=== PATIENT | male | born 1955 | race Caucasian/White ===

== ENCOUNTER 2020-07-11 09:31 | Inpatient (IN) | payer MEDICARE, OTHER ==
[~2020-07-11] VITALS: Ht 180.3 cm; Wt 98.6 kg
[2020-07-11] VITALS (12 sets, daily range): BP systolic 98–177; BP diastolic 42–84
[~2020-07-11 09:31] MED LIST: albumin (human) 25% 100 ML IV solution IV ONE; aminocaproic acid 250 MG/1 ML inj. ONE; calcium chloride 100 MG/1 ML inj IV ONE; heparin 1,000 units/ml 10ml inj ONE
[2020-07-11] MEDS ORDERED: NITR0.4T51 SL (10:12)
[2020-07-11] MEDS ORDERED: FURO-150 PO (10:12)
[2020-07-11] MEDS ORDERED: LISI40TA4 PO (10:12)
[2020-07-11] MEDS ORDERED: SIMV10TA2 PO (10:12)
[2020-07-11] MEDS ORDERED: nitroGLYCERIN 0.4mg SUBLingual tab SL PRN ×2 (10:15→20:10)
[2020-07-11] MEDS ORDERED: LORazepam 0.5 MG tablet PO PRN (10:15)
[2020-07-11] MEDS ORDERED: sodium bicarbonate (8.4%) inj. 150 ML in dextrose 5%-water 1,000 ML IV ONE (10:15)
[2020-07-11] MEDS ORDERED: diphenhydrAMINE 25mg capsule PO PRN (10:15)
[2020-07-11] MEDS ORDERED: iohexol 350 MG/ML 50ML vial IV ONE (12:03)
[2020-07-11] MEDS ORDERED: LIDOcaine 1% (10mg/ml)w/preservative injection 20ml MDV ONE (12:03)
[2020-07-11] MEDS ORDERED: fentaNYL/PF 50MCG/1 ML 2ML syringe ONE (12:03)
[2020-07-11] MEDS ORDERED: midazolam 2 mg/2 ml injection ONE (12:03)
[2020-07-11] MEDS ORDERED: iohexol 350MG/ML 100ml bottle IV ONE (12:03)
[2020-07-11] MEDS ORDERED: ondansetron/PF 4mg/2ml inj IV PRN (13:30)
[2020-07-11] MEDS ORDERED: HYDROcodone/acetaminophen 10/325mg tab PO PRN (13:35)
[2020-07-11] MEDS ORDERED: HYDROcodone/acetaminophen 5mg/325mg tablet PO PRN (13:35)
[2020-07-11] MEDS ORDERED: proCHLORperazine 10 MG/2 ml inj IV PRN (13:35)
[2020-07-11] MEDS ORDERED: OXAZEpam 15mg capsule PO PRN (13:35)
[2020-07-11] MEDS ORDERED: MESSAGE TO NURSING PO ONE ×4 (15:35)
[2020-07-11] MEDS ORDERED: insulin glargine (Lantus) pen - multi-dose SQ PRN (15:35)
[2020-07-11] MEDS ORDERED: magnesium 4gm in 100ml NS 100 ML IV PRN (15:35)
[2020-07-11] MEDS ORDERED: potassium Cl 20 mEq SR tablet PO PRN (15:35)
[2020-07-11] MEDS ORDERED: potassium Cl 20mEq/100mL bag 100 ML IV PRN (15:35)
[2020-07-11] MEDS ORDERED: dextrose 50%-water 50ml dispensing syringe IV PRN (15:35)
[2020-07-11] MEDS ORDERED: magnesium 2GM in 50ml NS 50 ML IV PRN (15:35)
[2020-07-11] MEDS ORDERED: FURO20TA4 PO (15:44)
--- NOTE | 2020-07-11 16:45 | NUR ---
Problems reprioritized. Patient report given, questions answered & plan of care reviewed with BARON Tucker, will be taking pt to room #3009 shortly.
--- NOTE | 2020-07-11 16:48 | NUR ---
Awaiting arrival of Pt to room 3009.
--- NOTE | 2020-07-11 16:48 | NUR ---
Patient in room . I have received report from Tanya DRAPER and had the opportunity to ask questions and assume patient care.
--- NOTE | 2020-07-11 17:00 | NUR ---
pt in room #3009, VSS, pt is in stable condition, Sabra velazquez dsg TRACY, BARON Tucker and BARON Hoffman at pt's bedside, pt is in no distress at this time.
[2020-07-11 17:13] LABS: PARTIAL THROMBOPLASTIN TIME 26 SECONDS (22-32)
--- NOTE | 2020-07-11 18:32 | NUR ---
Problems reprioritized. Patient report given, questions answered & plan of care reviewed with Nanci DRAPER.
[2020-07-11] MEDS: atorvastatin 10mg tablet PO SCH (20:53)
--- NOTE | 2020-07-11 21:30 | NUR ---
Problems reprioritized. Patient report given, questions answered & plan of care reviewed with Yann RN.
--- NOTE | 2020-07-11 21:45 | NUR ---
Patient in room PCU 3009. I have received report from Nanci DRAPER and had the opportunity to ask questions and assume patient care.
[2020-07-12 03:00] VITALS: BP 98/44
[2020-07-12 06:00] VITALS: BP 122/66
--- NOTE | 2020-07-12 06:11 | NUR ---
Patient in room PCU 3009. I have received report from katherine escoto and had the opportunity to ask questions.
--- NOTE | 2020-07-12 06:15 | NUR ---
PATIENT TRANSFERRED TO ACCE ROOM 314. I ASSUMED CARE OF PATIENT AT THIS TIME
[2020-07-12] MEDS: furosemide 20MG tablet PO SCH ×2 (07:53→19:41)
[2020-07-12] MEDS ORDERED: lisinopril 20mg tablet PO SCH ×2 (08:00→21:00)
--- NOTE | 2020-07-12 08:12 | NUR ---
RADIOLOGY CALLED BACK AND INFORMED WHEN PATIENT IN WC, SEND PAGED AGAIN
--- NOTE | 2020-07-12 08:12 | NUR ---
RADIOLOGY PAGED: 314: FEGLEY - 2 VIEW ORDERED, WC ABLE, ABOUT 20 MIN IF THAT WORKS FOR YOU? PT EATING BREAKFAST RIGHT NOW. TY
[2020-07-12 09:08] LABS: BASOPHILS % (AUTO) 0.4 % (0-1); EOSINOPHILS # (AUTO) 0.1 X10'3 (0-0.9); EOSINOPHILS % (AUTO) 1.2 % (0-6); HEMATOCRIT 40.9 % (42.0-52.0); HEMOGLOBIN 13.9 g/dl (14.0-17.9); LYMPHOCYTES # (AUTO) 1.2 X10'3 (1.1-4.8); LYMPHOCYTES % (AUTO) 16.3 % (21-51); MEAN CORPUSCULAR HEMOGLOBIN 30.3 PG (27.0-31.0); MEAN CORPUSCULAR HGB CONC 33.9 g/dL (33.0-36.5); MEAN CORPUSCULAR VOLUME 89.2 FL (78-98); MEAN PLATELET VOLUME 8.7 FL (7.4-10.4); MONOCYTES # (AUTO) 0.5 X10'3 (0-0.9); MONOCYTES % (AUTO) 7.2 % (2-12); NEUTROPHILS # (AUTO) 5.5 X10'3 (1.8-7.7); NEUTROPHILS % (AUTO) 74.9 % (42-75); PLATELET COUNT 268 X10'3 (140-440); RED BLOOD COUNT 4.59 X10'6 (4.70-6.10); RED CELL DISTRIBUTION WIDTH 13.6 % (11.5-14.5); WHITE BLOOD COUNT 7.3 X10'3 (4.5-11.0)
[2020-07-12 09:22] LABS: ALANINE AMINOTRANSFERASE 23 U/L (12-78); ALBUMIN 3.6 G/DL (3.4-5.0); ALKALINE PHOSPHATASE 73 IU/L (46-116); ANION GAP 8 (8-16); ASPARTATE AMINO TRANSFERASE 22 U/L (10-37); BILIRUBIN,TOTAL 0.4 MG/DL (0.1-1.0); BLOOD UREA NITROGEN 13 MG/DL (7-18); BUN/CREATININE RATIO 16.3 (5.4-32.0); CALCIUM 8.9 MG/DL (8.5-10.1); CHLORIDE 107 MMOL/L (99-107); GLUCOSE 87 MG/DL (70-104); MAGNESIUM 2.2 MG/DL (1.5-2.4); POTASSIUM 4.2 MMOL/L (3.5-5.1); SODIUM 143 MMOL/L (135-145); TOTAL CARBON DIOXIDE 27.6 MMOL/L (24-32); TOTAL PROTEIN 7.1 G/DL (6.4-8.2); eGFR > 90 ML/MIN
[2020-07-12 09:57] LABS: ABG BASE EXCESS 0.2 mmol/L (-2.0-2.0); ABG HCO3 23.1 mmol/L (22.0-26.0); ABG PCO2 (T) 32.6 mmHg (35.0-48.0); ABG PO2 (T) 75.5 mmHg (75.0-100.0); ALLEN'S TEST POSITIVE; FCOHb 0.6 % (0.0-3.9); FMetHb 0.2 % (0.0-1.5); FO2Hb 95.2 % (94-97); TOTAL HEMOGLOBIN 14.5 G/dl (14.0-18.0)
[2020-07-12] MEDS ORDERED: MESSAGE TO NURSING PO ONE (10:00)
[2020-07-12 10:56] VITALS: BP 121/65
--- NOTE | 2020-07-12 15:45 | NUR ---
Patient in room MED 314. I have received report from Meryl DRAPER and had the opportunity to ask questions and assume patient care.
[2020-07-12 18:00] VITALS: BP 135/66
[2020-07-12] MEDS ORDERED: ringers solution, lacted 1,000 ML IV ONE (19:30)
[2020-07-12] MEDS: atorvastatin 10mg tablet PO SCH (19:44)
[2020-07-12 22:00] VITALS: BP 131/65
[2020-07-13] VITALS (19 sets, daily range): BP systolic 95–151; BP diastolic 7–68
[2020-07-13] MEDS ORDERED: ceFAZolin 1000mg inj ONE (05:02)
[2020-07-13] MEDS ORDERED: MALTODEXTRIN/FRUCTOSE 0.68 KCAL/ML LIQUID 296ML BOTTLE PO ONE (05:30)
[2020-07-13] MEDS ORDERED: cefazolin/dext.iso 2gm/50ml 50 ML IV ONE (05:30)
[2020-07-13] MEDS ORDERED: Insulin Reg/NS 100units/100mL 100 ML IV SCH ×2 (05:30→11:20)
[2020-07-13] MEDS ORDERED: mupirocin 2% nasal ointment 1gm UD NS SCH (05:30)
[2020-07-13] MEDS ORDERED: gabapentin 400mg capsule PO ONE (05:30)
[2020-07-13] MEDS ORDERED: mupirocin 2% ointment 22GM NS SCH (05:30)
[2020-07-13] MEDS ORDERED: vancomycin/NS 1 GM ADD-VANTAGE 250 ML IV ONE (05:30)
[2020-07-13] MEDS ORDERED: VANCOMYCIN 1,500MG inj. 1,500 MG in normal saline 500ml IV soln 300 ML IV ONE (05:30)
[2020-07-13] MEDS ORDERED: famotidine 20mg tablet PO ONE (06:00)
[2020-07-13] MEDS ORDERED: LORazepam 2 mg/ml vial IV ONE (06:00)
[2020-07-13 06:11] LABS: BASOPHILS % (AUTO) 0.4 % (0-1); EOSINOPHILS # (AUTO) 0.1 X10'3 (0-0.9); EOSINOPHILS % (AUTO) 0.7 % (0-6); HEMATOCRIT 40.7 % (42.0-52.0); HEMOGLOBIN 13.5 g/dl (14.0-17.9); LYMPHOCYTES # (AUTO) 0.9 X10'3 (1.1-4.8); MEAN CORPUSCULAR HEMOGLOBIN 29.9 PG (27.0-31.0); MEAN CORPUSCULAR HGB CONC 33.2 g/dL (33.0-36.5); MEAN CORPUSCULAR VOLUME 90.3 FL (78-98); MEAN PLATELET VOLUME 8.6 FL (7.4-10.4); MONOCYTES # (AUTO) 0.6 X10'3 (0-0.9); MONOCYTES % (AUTO) 5.5 % (2-12); NEUTROPHILS # (AUTO) 10.1 X10'3 (1.8-7.7); NEUTROPHILS % (AUTO) 85.4 % (42-75); PLATELET COUNT 244 X10'3 (140-440); RED BLOOD COUNT 4.51 X10'6 (4.70-6.10); RED CELL DISTRIBUTION WIDTH 13.1 % (11.5-14.5); WHITE BLOOD COUNT 11.8 X10'3 (4.5-11.0)
--- NOTE | 2020-07-13 06:12 | NUR ---
Problems reprioritized. Patient report given, questions answered & plan of care reviewed with EDWINA DRAPER
[2020-07-13 06:21] LABS: ALBUMIN 3.4 G/DL (3.4-5.0); ANION GAP 9 (8-16); BLOOD UREA NITROGEN 12 MG/DL (7-18); CALCIUM 8.4 MG/DL (8.5-10.1); CHLORIDE 106 MMOL/L (99-107); CREATININE 0.92 MG/DL (0.60-1.10); GLUCOSE 203 MG/DL (70-104); POTASSIUM 3.8 MMOL/L (3.5-5.1); SODIUM 140 MMOL/L (135-145); TOTAL CARBON DIOXIDE 25.4 MMOL/L (24-32); eGFR 82 ML/MIN
--- NOTE | 2020-07-13 06:36 | NUR ---
Problems reprioritized. Patient report given, questions answered & plan of care reviewed with EDWINA DRAPER.
[2020-07-13] MEDS ORDERED: LORazepam 2 mg/ml vial ONE (06:43)
[2020-07-13] MEDS ORDERED: isoflurane 100ml inhalation liquid IH ONE (06:52)
[2020-07-13] MEDS ORDERED: protamine sulf. 10mg/ml inj. IV ONE (06:52)
[2020-07-13] MEDS ORDERED: nitroGLYCERIN in D5W 50mg/250ml (Tridil) infusion IV ONE (06:52)
[2020-07-13] MEDS ORDERED: SUFENTANIL CITRATE 50 MCG/ML 2ml ampule IV ONE (06:59)
[2020-07-13] MEDS ORDERED: LIDOcaine 2% (20mg/ml) 5ml vial ONE (07:00)
[2020-07-13] MEDS ORDERED: propofol inj 20 ML IV ONE (07:00)
[2020-07-13] MEDS ORDERED: pancuronium br 1mg/ml inj IV ONE (07:28)
[2020-07-13] MEDS ORDERED: rocuronium 10mg/ml inj IV ONE (07:28)
[2020-07-13] MEDS ORDERED: metoprolol tartrate 12.5mg (1/2 tablet) PO SCH (08:00)
[2020-07-13 08:01] LABS: ABG BASE EXCESS -1.3 mmol/L (-2.0-2.0); ABG OXYGEN SATURATION 98.1 % (94-97); ABG PCO2 32.5 mmHg (35.0-48.0); ABG PO2 101.6 mmHg (75.0-100.0); CL (ABG) 106 mmol/L (98-110); FCOHb 0.5 % (0.0-3.9); FO2Hb 97.6 % (94-97); GLUCOSE (ABG) 141 mg/dl (70-140); IONIZED CA (ABG) 1.15 mmol/L (1.10-1.43); K (ABG) 3.8 mmol/L (3.5-5.0); TOTAL HEMOGLOBIN 12.7 G/dl (14.0-18.0)
[2020-07-13] MEDS ORDERED: papaverine 30 mg/ml 2ml inj. IA ONE (08:16)
[2020-07-13] MEDS ORDERED: heparin 10,000 units/1 ML INJ IR ONE (08:16)
[2020-07-13 08:47] LABS: ABG BASE EXCESS -1.1 mmol/L (-2.0-2.0); ABG HCO3 23.3 mmol/L (22.0-26.0); ABG OXYGEN SATURATION 99.6 % (94-97); ABG PCO2 38.1 mmHg (35.0-48.0); CL (ABG) 107 mmol/L (98-110); FCOHb 0.6 % (0.0-3.9); FMetHb 0.3 % (0.0-1.5); FO2Hb 98.7 % (94-97); GLUCOSE (ABG) 126 mg/dl (70-140); IONIZED CA (ABG) 1.16 mmol/L (1.10-1.43); K (ABG) 3.6 mmol/L (3.5-5.0)
[2020-07-13 09:21] LABS: ABG BASE EXCESS -0.4 mmol/L (-2.0-2.0); ABG HCO3 23.6 mmol/L (22.0-26.0); ABG OXYGEN SATURATION 99.5 % (94-97); ABG PCO2 36.2 mmHg (35.0-48.0); ABG PO2 473.1 mmHg (75.0-100.0); CL (ABG) 104 mmol/L (98-110); FCOHb 0.3 % (0.0-3.9); FMetHb 0.3 % (0.0-1.5); FO2Hb 98.9 % (94-97); GLUCOSE (ABG) 110 mg/dl (70-140); IONIZED CA (ABG) 1.05 mmol/L (1.10-1.43); K (ABG) 4.3 mmol/L (3.5-5.0); TOTAL HEMOGLOBIN 10.2 G/dl (14.0-18.0)
[2020-07-13 09:46] LABS: ABG BASE EXCESS VENOUS 1.8 mmol/L; ABG HCO3 VENOUS 26.6 mmol/L; ABG PCO2 VENOUS 42.6 mmHg; ABG PO2 VENOUS 47.9 mmHg; CL (ABG) 106 mmol/L (98-110); FCOHb VENOUS 0.3 %; FHHb VENOUS 14.7 %; FMetHb VENOUS 0.1 %; FO2Hb VENOUS 84.9 %; GLUCOSE (ABG) 130 mg/dl (70-140); IONIZED CA (ABG) 1.04 mmol/L (1.10-1.43); K (ABG) 4.6 mmol/L (3.5-5.0); TOTAL HEMOGLOBIN 10.4 G/dl (14.0-18.0)
[2020-07-13] MEDS ORDERED: ipratropium/albuterol 3ml nebule IH PRN (10:20)
[2020-07-13 10:24] LABS: ABG BASE EXCESS 0.8 mmol/L (-2.0-2.0); ABG HCO3 24.8 mmol/L (22.0-26.0); ABG OXYGEN SATURATION 99.5 % (94-97); ABG PCO2 37.4 mmHg (35.0-48.0); ABG PO2 329.7 mmHg (75.0-100.0); CL (ABG) 104 mmol/L (98-110); FCOHb 0.1 % (0.0-3.9); FMetHb 0.1 % (0.0-1.5); FO2Hb 99.3 % (94-97); GLUCOSE (ABG) 132 mg/dl (70-140); IONIZED CA (ABG) 1.32 mmol/L (1.10-1.43); K (ABG) 4.3 mmol/L (3.5-5.0); TOTAL HEMOGLOBIN 9.7 G/dl (14.0-18.0)
[2020-07-13 10:52] LABS: ABG HCO3 23.5 mmol/L (22.0-26.0); ABG OXYGEN SATURATION 98.4 % (94-97); ABG PO2 114.5 mmHg (75.0-100.0); CL (ABG) 106 mmol/L (98-110); FCOHb 0.4 % (0.0-3.9); GLUCOSE (ABG) 136 mg/dl (70-140); K (ABG) 4.1 mmol/L (3.5-5.0); TOTAL HEMOGLOBIN 10.6 G/dl (14.0-18.0)
[2020-07-13 10:55] LABS: ACTIVATED CLOTTING TIME 127 SEC (101-148)
[2020-07-13] MEDS ORDERED: sodium chloride 0.45% 1,000 ML IV SCH (11:20)
[2020-07-13] MEDS ORDERED: metoclopramide 5 mg/ml inj IV PRN (11:20)
[2020-07-13] MEDS ORDERED: sodium phosphate inj. 30 MMOL in dextrose 5%-water 250 ML IV PRN (11:20)
[2020-07-13] MEDS ORDERED: albumin (Human) 5% 250ml 250 ML IV PRN (11:20)
[2020-07-13] MEDS ORDERED: insulin glargine (Lantus) pen - multi-dose SQ PRN (11:20)
[2020-07-13] MEDS ORDERED: magnesium 4gm in 100ml NS 100 ML IV PRN (11:20)
[2020-07-13] MEDS ORDERED: morphine 4 MG/ML inj SYRINge IV PRN (11:20)
[2020-07-13] MEDS ORDERED: DOPamine 400mg/D5W 250ml 250 ML IV PRN (11:20)
[2020-07-13] MEDS ORDERED: bisacodyl 10mg suppository rectal RC PRN (11:20)
[2020-07-13] MEDS ORDERED: mineral oil 133ml enema RC PRN (11:20)
[2020-07-13] MEDS ORDERED: ondansetron/PF 4mg/2ml inj IV PRN (11:20)
[2020-07-13] MEDS ORDERED: nitroGLYCERIN-Tridil 50MG/D5W 250 ML IV PRN (11:20)
[2020-07-13] MEDS ORDERED: magnesium hydroxide 30ml (MOM) UD suspension PO PRN (11:20)
[2020-07-13] MEDS ORDERED: niCARDipine-NS 40mg/200ml IVPB 200 ML IV PRN (11:20)
[2020-07-13] MEDS ORDERED: normal saline 250ml IV soln 250 ML IV PRN (11:20)
[2020-07-13] MEDS ORDERED: potassium Cl 20 mEq SR tablet PO PRN (11:20)
[2020-07-13] MEDS ORDERED: dextrose 50%-water 50ml dispensing syringe IV PRN (11:20)
[2020-07-13] MEDS ORDERED: magnesium citrate 296ml oral solution PO PRN (11:20)
[2020-07-13] MEDS ORDERED: pantoprazole 40 MG vial IV ONE (11:20)
[2020-07-13] MEDS ORDERED: magnesium 2GM in 50ml NS 50 ML IV PRN (11:20)
[2020-07-13] MEDS ORDERED: Neutra Phos packet PO PRN (11:20)
[2020-07-13] MEDS ORDERED: acetaminophen 325mg tablet PO PRN ×2 (11:20)
[2020-07-13] MEDS ORDERED: sodium phosphate inj. 15 MMOL in dextrose 5%-water 250 ML IV PRN (11:20)
--- NOTE | 2020-07-13 11:30 | NUR ---
Received to room 2044, accompanied by MDs and surgical crew. Placed on ventilator, to vehicle monitor technician, arterial line and PA line pressure monitored. Chest tubes to suction at 20 cm. Tello cath to gravity drainage. Dressings are dry and intact. See assessment record. All vasoactive drugs are infusing via central line.
[2020-07-13 11:51] LABS: BASOPHILS % (AUTO) 0.2 % (0-1); EOSINOPHILS % (AUTO) 0.1 % (0-6); HEMATOCRIT 36.2 % (42.0-52.0); HEMOGLOBIN 12.2 g/dl (14.0-17.9); LYMPHOCYTES # (AUTO) 0.4 X10'3 (1.1-4.8); LYMPHOCYTES % (AUTO) 2.7 % (21-51); MEAN CORPUSCULAR HEMOGLOBIN 30.1 PG (27.0-31.0); MEAN CORPUSCULAR HGB CONC 33.8 g/dL (33.0-36.5); MEAN CORPUSCULAR VOLUME 89.3 FL (78-98); MEAN PLATELET VOLUME 8.3 FL (7.4-10.4); MONOCYTES # (AUTO) 0.5 X10'3 (0-0.9); NEUTROPHILS # (AUTO) 15.7 X10'3 (1.8-7.7); PLATELET COUNT 203 X10'3 (140-440); RED BLOOD COUNT 4.05 X10'6 (4.70-6.10); WHITE BLOOD COUNT 16.7 X10'3 (4.5-11.0)
[2020-07-13 11:52] LABS: ABG BASE EXCESS -3.5 mmol/L (-2.0-2.0); ABG HCO3 18.4 mmol/L (22.0-26.0); ABG OXYGEN SATURATION 97.3 % (94-97); ABG PCO2 (T) 24.9 mmHg (35.0-48.0); ABG PO2 (T) 104.9 mmHg (75.0-100.0); FCOHb 0.3 % (0.0-3.9); FMetHb 0.2 % (0.0-1.5); FO2Hb 96.8 % (94-97); PATIENT TEMPERATURE 36.9; PEEP 5 cm H2O; RESPIRATORY RATE 12 b/min; TIDAL VOLUME 650 mL; TOTAL HEMOGLOBIN 12.4 G/dl (14.0-18.0)
[2020-07-13 12:03] LABS: PARTIAL THROMBOPLASTIN TIME 27 SECONDS (22-32)
[2020-07-13 12:06] LABS: ALANINE AMINOTRANSFERASE 17 U/L (12-78); ALBUMIN 2.9 G/DL (3.4-5.0); ALBUMIN/GLOBULIN RATIO 1.2 (1.1-1.5); ALKALINE PHOSPHATASE 51 IU/L (46-116); ANION GAP 6 (8-16); ASPARTATE AMINO TRANSFERASE 24 U/L (10-37); BILIRUBIN,TOTAL 0.6 MG/DL (0.1-1.0); BLOOD UREA NITROGEN 11 MG/DL (7-18); BUN/CREATININE RATIO 10.3 (5.4-32.0); CALCIUM 8.2 MG/DL (8.5-10.1); CHLORIDE 111 MMOL/L (99-107); CREATININE 1.07 MG/DL (0.60-1.10); GLUCOSE 143 MG/DL (70-104); MAGNESIUM 3.3 MG/DL (1.5-2.4); PHOSPHORUS 1.5 MG/DL (2.3-4.5); POTASSIUM 3.9 MMOL/L (3.5-5.1); SODIUM 143 MMOL/L (135-145); TOTAL CARBON DIOXIDE 26.1 MMOL/L (24-32); TOTAL PROTEIN 5.3 G/DL (6.4-8.2); eGFR 69 ML/MIN
--- NOTE | 2020-07-13 12:16 | NUR ---
Nutrition consult: Pt s/p CABG x 4 today. Pt would benefit from nutrition therapy education once stable. Pt with 75-100% PO intake on regular diet prior to surgery. Will monitor need for ONS/additional protein pending trends in PO intake post-op. Addendum: 07/13/20 at [address] Amended: Links added.
[2020-07-13] MEDS: potassium Cl 20mEq/100mL bag 100 ML IV PRN ×3 (12:40→17:38)
[2020-07-13] MEDS: gabapentin 300mg capsule PO SCH ×2 (12:40→20:35)
[2020-07-13 13:23] LABS: ABG BASE EXCESS -3.8 mmol/L (-2.0-2.0); ABG HCO3 21.5 mmol/L (22.0-26.0); ABG OXYGEN SATURATION 96.7 % (94-97); ABG PCO2 (T) 40.4 mmHg (35.0-48.0); ABG PO2 (T) 99.1 mmHg (75.0-100.0); FCOHb 0.3 % (0.0-3.9); FMetHb 0.4 % (0.0-1.5); PATIENT TEMPERATURE 37.4; PEEP 5 cm H2O; RESPIRATORY RATE 12 b/min; TIDAL VOLUME 500 mL; TOTAL HEMOGLOBIN 13.3 G/dl (14.0-18.0)
[2020-07-13] MEDS: morphine 4 MG/ML inj SYRINge IV PRN ×2 (13:35→20:35)
[2020-07-13] MEDS: ceFAZolin/D5W- 1GM premix 50 ML IV SCH (15:35)
[2020-07-13 15:57] LABS: ABG BASE EXCESS -4.3 mmol/L (-2.0-2.0); ABG HCO3 18.5 mmol/L (22.0-26.0); ABG OXYGEN SATURATION 93.5 % (94-97); ABG PO2 (T) 68.3 mmHg (75.0-100.0); FCOHb 0.3 % (0.0-3.9); FMetHb 0.4 % (0.0-1.5); FO2Hb 92.8 % (94-97); PATIENT TEMPERATURE 37.7; PEEP 5 cm H2O; TIDAL VOLUME 444 mL; TOTAL HEMOGLOBIN 13.1 G/dl (14.0-18.0)
[2020-07-13] MEDS ORDERED: potassium Cl 2 mEq/ml inj IV ONE (16:00)
[2020-07-13 17:17] LABS: BASOPHILS % (AUTO) 0.1 % (0-1); EOSINOPHILS % (AUTO) 0 % (0-6); HEMATOCRIT 37.8 % (42.0-52.0); HEMOGLOBIN 12.6 g/dl (14.0-17.9); LYMPHOCYTES # (AUTO) 0.3 X10'3 (1.1-4.8); LYMPHOCYTES % (AUTO) 2.5 % (21-51); MEAN CORPUSCULAR HEMOGLOBIN 29.7 PG (27.0-31.0); MEAN CORPUSCULAR HGB CONC 33.3 g/dL (33.0-36.5); MEAN CORPUSCULAR VOLUME 89.1 FL (78-98); MEAN PLATELET VOLUME 8.6 FL (7.4-10.4); MONOCYTES # (AUTO) 0.3 X10'3 (0-0.9); MONOCYTES % (AUTO) 2.3 % (2-12); NEUTROPHILS # (AUTO) 11.7 X10'3 (1.8-7.7); NEUTROPHILS % (AUTO) 95.1 % (42-75); PLATELET COUNT 208 X10'3 (140-440); RED BLOOD COUNT 4.25 X10'6 (4.70-6.10); RED CELL DISTRIBUTION WIDTH 13.2 % (11.5-14.5); WHITE BLOOD COUNT 12.3 X10'3 (4.5-11.0)
[2020-07-13 17:34] LABS: ALBUMIN 3.1 G/DL (3.4-5.0); ANION GAP 7 (8-16); BLOOD UREA NITROGEN 11 MG/DL (7-18); BUN/CREATININE RATIO 9.7 (5.4-32.0); CALCIUM 7.9 MG/DL (8.5-10.1); CHLORIDE 112 MMOL/L (99-107); CREATININE 1.13 MG/DL (0.60-1.10); GLUCOSE 157 MG/DL (70-104); MAGNESIUM 2.5 MG/DL (1.5-2.4); PHOSPHORUS 2.5 MG/DL (2.3-4.5); POTASSIUM 4.1 MMOL/L (3.5-5.1); SODIUM 144 MMOL/L (135-145); TOTAL CARBON DIOXIDE 25.2 MMOL/L (24-32); eGFR 65 ML/MIN
[2020-07-13] MEDS: vancomycin/NS 1 GM ADD-VANTAGE 250 ML IV SCH (20:34)
[2020-07-13] MEDS: sennosides/docusate sodium tablet PO SCH (20:34)
[2020-07-13] MEDS: atorvastatin 10mg tablet PO SCH (20:35)
[2020-07-13] MEDS: mupirocin 2% nasal ointment 1gm UD NS SCH (20:35)
[2020-07-13 21:23] LABS: BASOPHILS % (AUTO) 0.1 % (0-1); EOSINOPHILS % (AUTO) 0 % (0-6); HEMATOCRIT 36.6 % (42.0-52.0); HEMOGLOBIN 12.3 g/dl (14.0-17.9); LYMPHOCYTES # (AUTO) 0.4 X10'3 (1.1-4.8); LYMPHOCYTES % (AUTO) 3.8 % (21-51); MEAN CORPUSCULAR HGB CONC 33.7 g/dL (33.0-36.5); MEAN CORPUSCULAR VOLUME 89.2 FL (78-98); MEAN PLATELET VOLUME 8.5 FL (7.4-10.4); MONOCYTES # (AUTO) 0.3 X10'3 (0-0.9); MONOCYTES % (AUTO) 2.4 % (2-12); NEUTROPHILS # (AUTO) 10.9 X10'3 (1.8-7.7); NEUTROPHILS % (AUTO) 93.7 % (42-75); PLATELET COUNT 206 X10'3 (140-440); RED CELL DISTRIBUTION WIDTH 13.3 % (11.5-14.5); WHITE BLOOD COUNT 11.7 X10'3 (4.5-11.0)
[2020-07-13 21:30] LABS: MAGNESIUM 2.3 MG/DL (1.5-2.4); POTASSIUM 4.3 MMOL/L (3.5-5.1)
[2020-07-13] MEDS: HYDROcodone/acetaminophen 10/325mg tab PO PRN (22:33)
[2020-07-14] VITALS (19 sets, daily range): BP systolic 90–143; BP diastolic 54–71
[2020-07-14] MEDS: ceFAZolin/D5W- 1GM premix 50 ML IV SCH ×4 (00:22→23:46)
[2020-07-14 03:05] LABS: BASOPHILS % (AUTO) 0.1 % (0-1); EOSINOPHILS % (AUTO) 0 % (0-6); HEMATOCRIT 36.1 % (42.0-52.0); HEMOGLOBIN 12.1 g/dl (14.0-17.9); LYMPHOCYTES # (AUTO) 0.7 X10'3 (1.1-4.8); LYMPHOCYTES % (AUTO) 4.4 % (21-51); MEAN CORPUSCULAR HEMOGLOBIN 29.9 PG (27.0-31.0); MEAN CORPUSCULAR HGB CONC 33.6 g/dL (33.0-36.5); MEAN CORPUSCULAR VOLUME 89.3 FL (78-98); MEAN PLATELET VOLUME 8.8 FL (7.4-10.4); MONOCYTES # (AUTO) 0.7 X10'3 (0-0.9); MONOCYTES % (AUTO) 4.5 % (2-12); NEUTROPHILS # (AUTO) 14.7 X10'3 (1.8-7.7); PLATELET COUNT 204 X10'3 (140-440); RED BLOOD COUNT 4.04 X10'6 (4.70-6.10); RED CELL DISTRIBUTION WIDTH 13.4 % (11.5-14.5); WHITE BLOOD COUNT 16.1 X10'3 (4.5-11.0)
[2020-07-14 03:08] LABS: PARTIAL THROMBOPLASTIN TIME 26 SECONDS (22-32)
[2020-07-14 03:16] LABS: ALANINE AMINOTRANSFERASE 19 U/L (12-78); ALKALINE PHOSPHATASE 54 IU/L (46-116); ANION GAP 7 (8-16); ASPARTATE AMINO TRANSFERASE 32 U/L (10-37); BILIRUBIN,TOTAL 0.3 MG/DL (0.1-1.0); BLOOD UREA NITROGEN 11 MG/DL (7-18); BUN/CREATININE RATIO 13.4 (5.4-32.0); CHLORIDE 111 MMOL/L (99-107); CREATININE 0.82 MG/DL (0.60-1.10); GLUCOSE 145 MG/DL (70-104); MAGNESIUM 2.3 MG/DL (1.5-2.4); PHOSPHORUS 3.8 MG/DL (2.3-4.5); POTASSIUM 4.3 MMOL/L (3.5-5.1); SODIUM 143 MMOL/L (135-145); TOTAL CARBON DIOXIDE 25.4 MMOL/L (24-32); eGFR > 90 ML/MIN
[2020-07-14] MEDS: potassium Cl 20mEq/100mL bag 100 ML IV PRN ×2 (04:45→05:52)
[2020-07-14] MEDS: gabapentin 300mg capsule PO SCH ×3 (07:14→21:53)
[2020-07-14] MEDS: aspirin 325mg tablet, delayed-release (Ecotrin) PO SCH (07:14)
[2020-07-14] MEDS: sennosides/docusate sodium tablet PO SCH ×2 (07:16→21:54)
[2020-07-14] MEDS: HYDROcodone/acetaminophen 10/325mg tab PO PRN ×3 (07:16→23:43)
[2020-07-14] MEDS: mupirocin 2% nasal ointment 1gm UD NS SCH ×2 (07:17→21:57)
[2020-07-14] MEDS: vancomycin/NS 1 GM ADD-VANTAGE 250 ML IV SCH ×2 (09:27→21:38)
[2020-07-14] MEDS ORDERED: metoprolol tartrate 12.5mg (1/2 tablet) PO ONE (09:55)
[2020-07-14] MEDS ORDERED: potassium Cl 20mEq/100mL bag 100 ML IV PRN (10:10)
[2020-07-14] MEDS ORDERED: potassium Cl 20 mEq SR tablet PO PRN (10:10)
[2020-07-14] MEDS ORDERED: magnesium 2GM in 50ml NS 50 ML IV PRN (10:10)
[2020-07-14] MEDS ORDERED: magnesium 4gm in 100ml NS 100 ML IV PRN (10:10)
--- NOTE | 2020-07-14 10:15 | NUR ---
CT dc by
--- NOTE | 2020-07-14 13:40 | NUR ---
FC removed per orders. Pt tolerated well
--- NOTE | 2020-07-14 14:24 | NUR ---
Report called to receiving RN
--- NOTE | 2020-07-14 14:40 | NUR ---
Pt transferred to 216 in stable condition with all belongings. Assisted into bed and placed on monitor with receiving RN at bedside. Belongings include clothes, boots, phone, glasses, and one earing. Pt called family to notify them of new room
--- NOTE | 2020-07-14 15:07 | NUR ---
Patient arrived on unit via wheelchair. Oriented to unit. No complaints of pain or discomfort. VSS. Will continue to monitor.
--- NOTE | 2020-07-14 18:19 | NUR ---
informed Carlos. patient in/out afib controlled rate. BP WNL. new order received: amio gtt protocol
[2020-07-14] MEDS ORDERED: amiodarone 150mg/dext, iso-os 100 ML IV ONE (18:20)
--- NOTE | 2020-07-14 19:02 | NUR ---
amio gtt started per protocol, per bartolo order-foam charger notified. Lyndsay DRAPER
[2020-07-14] MEDS: amiodarone/D5 360MG/200ML BAG 200 ML IV SCH ×2 (19:21→23:47)
[2020-07-14] MEDS: potassium Cl 20 mEq SR tablet PO SCH (21:52)
[2020-07-14] MEDS: atorvastatin 10mg tablet PO SCH (21:52)
[2020-07-14] MEDS: magnesium Cl slow-release 64mg tablet PO SCH (21:53)
[2020-07-14] MEDS: metoprolol tartrate 12.5mg (1/2 tablet) PO SCH (21:56)
[2020-07-15] VITALS (8 sets, daily range): BP systolic 92–114; BP diastolic 52–67
[2020-07-15] MEDS: amiodarone/D5 360MG/200ML BAG 200 ML IV SCH (00:21)
--- NOTE | 2020-07-15 00:27 | NUR ---
amio running at correct rates, iv spreadsheet corrected for pump rates accordingly. Lyndsay
--- NOTE | 2020-07-15 06:15 | NUR ---
Patient in room MED 316. I have received report from katherine carballo and had the opportunity to ask questions and assume patient care.
[2020-07-15 06:31] LABS: ALBUMIN 2.8 G/DL (3.4-5.0); ANION GAP 5 (8-16); BLOOD UREA NITROGEN 18 MG/DL (7-18); BUN/CREATININE RATIO 22.5 (5.4-32.0); CALCIUM 8.5 MG/DL (8.5-10.1); CHLORIDE 105 MMOL/L (99-107); GLUCOSE 105 MG/DL (70-104); SODIUM 138 MMOL/L (135-145); TOTAL CARBON DIOXIDE 28.1 MMOL/L (24-32); eGFR > 90 ML/MIN
[2020-07-15 06:38] LABS: BASOPHILS % (AUTO) 0.1 % (0-1); EOSINOPHILS % (AUTO) 0.2 % (0-6); HEMATOCRIT 35.3 % (42.0-52.0); HEMOGLOBIN 11.8 g/dl (14.0-17.9); LYMPHOCYTES # (AUTO) 1.2 X10'3 (1.1-4.8); LYMPHOCYTES % (AUTO) 7.1 % (21-51); MEAN CORPUSCULAR HGB CONC 33.4 g/dL (33.0-36.5); MEAN CORPUSCULAR VOLUME 89.6 FL (78-98); MONOCYTES # (AUTO) 1.2 X10'3 (0-0.9); MONOCYTES % (AUTO) 7.3 % (2-12); NEUTROPHILS # (AUTO) 14.3 X10'3 (1.8-7.7); NEUTROPHILS % (AUTO) 85.3 % (42-75); PLATELET COUNT 196 X10'3 (140-440); RED BLOOD COUNT 3.94 X10'6 (4.70-6.10); RED CELL DISTRIBUTION WIDTH 13.1 % (11.5-14.5); WHITE BLOOD COUNT 16.8 X10'3 (4.5-11.0)
--- NOTE | 2020-07-15 06:45 | NUR ---
Problems reprioritized. Patient report given, questions answered & plan of care reviewed with REUBEN DRAPER.
[2020-07-15] MEDS: metoprolol tartrate 12.5mg (1/2 tablet) PO SCH ×2 (08:00→20:23)
[2020-07-15] MEDS: potassium Cl 20 mEq SR tablet PO SCH ×2 (08:00→20:35)
[2020-07-15] MEDS: aspirin 325mg tablet, delayed-release (Ecotrin) PO SCH (08:43)
[2020-07-15] MEDS: pantoprazole 40mg Tablet.DR PO SCH (08:43)
[2020-07-15] MEDS: gabapentin 300mg capsule PO SCH (08:43)
[2020-07-15] MEDS: magnesium Cl slow-release 64mg tablet PO SCH ×2 (08:43→20:22)
[2020-07-15] MEDS: sennosides/docusate sodium tablet PO SCH ×2 (08:43→20:22)
[2020-07-15] MEDS: mupirocin 2% nasal ointment 1gm UD NS SCH (08:44)
[2020-07-15] MEDS: HYDROcodone/acetaminophen 10/325mg tab PO PRN ×2 (08:45→22:26)
[2020-07-15] MEDS: amiodarone 200mg tablet PO SCH ×2 (10:29→20:22)
[2020-07-15] MEDS ORDERED: ondansetron 4mg rapidly disintigrating tab PO PRN (13:55)
--- NOTE | 2020-07-15 14:00 | NUR ---
Initial: Pt s/p CABGx4 PO decreased to 25-50% avg past 4 meals down from 75-100% prior. Noted LBM 07/10 receiving routine senna w/ additional bowel care added today per RN. Pt unable to wake from sleeping during RD visit; written CABG/HH diet ed w/ RD contact information left at bedside. Would benefit from verbal reinforcement prior to discharge. Will continue to monitor for additional protein/bowel care needs post-op. Rec: 1. advance diet as medically indicated to heart healthy 2. monitor for ONS needs 3. routine bowel care 4. wts per rx Addendum: 07/15/20 at [address] Amended: Links added.
--- NOTE | 2020-07-15 18:00 | NUR ---
Patient in room MED 316. I have received report from REUBEN DRAPER and had the opportunity to ask questions and assume patient care.
--- NOTE | 2020-07-15 18:42 | NUR ---
Problems reprioritized. Patient report given, questions answered & plan of care reviewed with .katherine carballo
[2020-07-15] MEDS: atorvastatin 10mg tablet PO SCH (20:21)
[2020-07-16 02:00] VITALS: BP 105/68
[2020-07-16] MEDS: HYDROcodone/acetaminophen 10/325mg tab PO PRN ×2 (02:01→20:29)
--- NOTE | 2020-07-16 06:10 | NUR ---
Problems reprioritized. Patient report given, questions answered & plan of care reviewed with Arianna DRAPER.
--- NOTE | 2020-07-16 06:15 | NUR ---
Patient in room MED 316. I have received report from katherine carballo and had the opportunity to ask questions and assume patient care.
[2020-07-16 06:56] LABS: BASOPHILS % (AUTO) 0.1 % (0-1); EOSINOPHILS # (AUTO) 0.1 X10'3 (0-0.9); EOSINOPHILS % (AUTO) 0.5 % (0-6); HEMATOCRIT 34.3 % (42.0-52.0); HEMOGLOBIN 11.4 g/dl (14.0-17.9); LYMPHOCYTES # (AUTO) 0.9 X10'3 (1.1-4.8); LYMPHOCYTES % (AUTO) 7.4 % (21-51); MEAN CORPUSCULAR HEMOGLOBIN 29.7 PG (27.0-31.0); MEAN CORPUSCULAR HGB CONC 33.1 g/dL (33.0-36.5); MEAN CORPUSCULAR VOLUME 89.7 FL (78-98); MEAN PLATELET VOLUME 9.2 FL (7.4-10.4); MONOCYTES # (AUTO) 1.2 X10'3 (0-0.9); MONOCYTES % (AUTO) 9.2 % (2-12); NEUTROPHILS # (AUTO) 10.5 X10'3 (1.8-7.7); NEUTROPHILS % (AUTO) 82.8 % (42-75); PLATELET COUNT 199 X10'3 (140-440); RED BLOOD COUNT 3.83 X10'6 (4.70-6.10); RED CELL DISTRIBUTION WIDTH 13.2 % (11.5-14.5); WHITE BLOOD COUNT 12.7 X10'3 (4.5-11.0)
[2020-07-16 07:01] VITALS: BP 113/61
[2020-07-16] MEDS: pantoprazole 40mg Tablet.DR PO SCH (07:03)
[2020-07-16] MEDS: amiodarone 200mg tablet PO SCH (07:03)
[2020-07-16 07:20] LABS: ALBUMIN 2.5 G/DL (3.4-5.0); ANION GAP 5 (8-16); BLOOD UREA NITROGEN 17 MG/DL (7-18); BUN/CREATININE RATIO 21.5 (5.4-32.0); CALCIUM 8.2 MG/DL (8.5-10.1); CHLORIDE 104 MMOL/L (99-107); CREATININE 0.79 MG/DL (0.60-1.10); GLUCOSE 89 MG/DL (70-104); MAGNESIUM 2.4 MG/DL (1.5-2.4); POTASSIUM 4.9 MMOL/L (3.5-5.1); SODIUM 138 MMOL/L (135-145); TOTAL CARBON DIOXIDE 29.3 MMOL/L (24-32); eGFR > 90 ML/MIN
[2020-07-16] MEDS: aspirin 325mg tablet, delayed-release (Ecotrin) PO SCH (07:53)
[2020-07-16] MEDS: magnesium Cl slow-release 64mg tablet PO SCH ×2 (07:53→20:26)
[2020-07-16] MEDS: metoprolol tartrate 12.5mg (1/2 tablet) PO SCH (07:54)
[2020-07-16] MEDS: sennosides/docusate sodium tablet PO SCH ×2 (07:55→20:26)
[2020-07-16] MEDS: potassium Cl 20 mEq SR tablet PO SCH ×2 (08:00→20:00)
[2020-07-16 11:00] VITALS: BP 100/60
[2020-07-16 14:00] VITALS: BP 121/74
--- NOTE | 2020-07-16 16:00 | NUR ---
Right IJ dc'd from right neck with sterile technique,with tip intact,sutures out,area cleansed,2x2 [address]
--- NOTE | 2020-07-16 17:00 | NUR ---
pt in sinus rhythm 1 heart block,strip in chart
[2020-07-16 18:00] VITALS: BP 122/66
--- NOTE | 2020-07-16 18:00 | NUR ---
1800 review-patient predominately in afib last 24 hrs, has resumed SR with !st degree about 1700 this afternoon. Will continue to monitor for changes . Lyndsay
--- NOTE | 2020-07-16 18:00 | NUR ---
Patient in room MED 316. I have received report from Arianna DRAPER and had the opportunity to ask questions and assume patient care.
--- NOTE | 2020-07-16 18:01 | NUR ---
patient in afib since start of amio gtt 07/14, will continue to monitor for changes. Lyndsay DRAPER Addendum: 07/17/20 at 0058 by Melissa Ramírez RN Patient had converted to SR about 1700 today, strip documentation in chart per protocol. Lyndsay DRAPER
--- NOTE | 2020-07-16 18:30 | NUR ---
Problems reprioritized. Patient report given, questions answered & plan of care reviewed with christal.
[2020-07-16] MEDS: atorvastatin 10mg tablet PO SCH (20:26)
[2020-07-16 22:00] VITALS: BP 110/59
[2020-07-17] MEDS: HYDROcodone/acetaminophen 10/325mg tab PO PRN ×2 (05:20→10:05)
[2020-07-17 06:00] VITALS: BP 111/59
--- NOTE | 2020-07-17 06:03 | NUR ---
Problems reprioritized. Patient report given, questions answered & plan of care reviewed with Arianna DRAPER.
--- NOTE | 2020-07-17 06:30 | NUR ---
Patient in room MED 316. I have received report fromkatherine carballo and had the opportunity to ask questions and assume patient care.
[2020-07-17 07:25] LABS: BASOPHILS % (AUTO) 0.4 % (0-1); EOSINOPHILS # (AUTO) 0.3 X10'3 (0-0.9); EOSINOPHILS % (AUTO) 2.9 % (0-6); HEMATOCRIT 34.5 % (42.0-52.0); HEMOGLOBIN 11.7 g/dl (14.0-17.9); LYMPHOCYTES # (AUTO) 1.6 X10'3 (1.1-4.8); LYMPHOCYTES % (AUTO) 18.1 % (21-51); MEAN CORPUSCULAR HEMOGLOBIN 30.2 PG (27.0-31.0); MEAN CORPUSCULAR VOLUME 88.8 FL (78-98); MEAN PLATELET VOLUME 8.3 FL (7.4-10.4); MONOCYTES # (AUTO) 0.8 X10'3 (0-0.9); MONOCYTES % (AUTO) 9.2 % (2-12); NEUTROPHILS # (AUTO) 6.1 X10'3 (1.8-7.7); NEUTROPHILS % (AUTO) 69.4 % (42-75); PLATELET COUNT 257 X10'3 (140-440); RED BLOOD COUNT 3.88 X10'6 (4.70-6.10); RED CELL DISTRIBUTION WIDTH 13.1 % (11.5-14.5); WHITE BLOOD COUNT 8.8 X10'3 (4.5-11.0)
[2020-07-17 07:56] LABS: ALBUMIN 2.6 G/DL (3.4-5.0); ANION GAP 7 (8-16); BLOOD UREA NITROGEN 19 MG/DL (7-18); BUN/CREATININE RATIO 25.7 (5.4-32.0); CALCIUM 8.4 MG/DL (8.5-10.1); CHLORIDE 105 MMOL/L (99-107); CREATININE 0.74 MG/DL (0.60-1.10); GLUCOSE 86 MG/DL (70-104); POTASSIUM 4.1 MMOL/L (3.5-5.1); SODIUM 141 MMOL/L (135-145); TOTAL CARBON DIOXIDE 28.9 MMOL/L (24-32); eGFR > 90 ML/MIN
[2020-07-17] MEDS ORDERED: ASPI-845 PO (08:00)
[2020-07-17] MEDS ORDERED: SENN-166 PO (08:00)
[2020-07-17] MEDS: potassium Cl 20 mEq SR tablet PO SCH (08:00)
[2020-07-17] MEDS: aspirin 325mg tablet, delayed-release (Ecotrin) PO SCH (08:19)
[2020-07-17] MEDS: magnesium Cl slow-release 64mg tablet PO SCH (08:21)
[2020-07-17] MEDS: pantoprazole 40mg Tablet.DR PO SCH (08:21)
[2020-07-17] MEDS: sennosides/docusate sodium tablet PO SCH (08:21)
[2020-07-17] MEDS ORDERED: HYDR-3972 PO (08:22)
[2020-07-17 10:00] VITALS: BP 121/72
--- NOTE | 2020-07-17 10:00 | NUR ---
reviewed all discharge instructions with pt ,including f/u appts with and Dr. mcfarland,prescriptions verified at [facility] in [place] , dc'd from left hand,site clear post cabg instructions provided,pt dc'd home via w/c with all belongings
--- NOTE | 2020-07-17 11:16 | NUR ---
F/u 07/17: Pt discharged prior to RD return for CABG reinforcement ed today; RD attempted to reach pt via home phone information in EMR but went straight to automated voicemail. Written ed w/ RD contact information was previously provided this admit. Addendum: 07/17/20 at [address] Amended: Links added.
--- NOTE | 2020-07-18 14:18 | NUR ---
CASE MANAGEMENT DISCHARGE FOLLOW UP: T/c to pt, no answer, left message requesting call back. Addendum: 07/18/20 at 1520 by Julia Beard RN 1457 Missed call from pt's , Alejandrina. 1458 Return t/c to Alejandrina, she states pt does not like talking on phone, pt actively participating in conversation in the background. Per pt, he is doing well. Denies chest pain, difficulty breathing/SOB, fever, fatigue, weakness, N/V, constipation. Pt states that he did give himself a suppository yesterday, advised pt that he clear any OTC medications with MD before taking in the future to avoid complications, both pt and his verbalize understanding. Both verbalize understanding of symptoms requiring notification of MD or contacting EMS. Reviewed pt's new, current, and stopped medications, pt and his verbalizes how to take each medication as well as why he is taking them. Verbalizes that pt is following MD d/c orders, adhering to sternal precautions, avoiding strenuous activity, pt states that he ambulates frequently in his home. Pt's states that if pt develops complications that [facility] is 1[address] from their residence and they will go there immediately if needed. Both pt and his deny any further questions/concerns at this time.
== END 2020-07-17 10:20 | disposition home or self-care (01) | DRG 233 ==
LOC: SSTAY O 09:31 → UNDOADMIN 13:00 → MED 3N 13:00 → SSTAY O 13:00 → MED 3N 15:31 → PCU 3S 17:47 → ICU 2S 07-13 08:49 → MED 3N 07-14 14:30
PROVIDERS: ADMIT Internal Medicine Cardiovascular Disease; ATTEND Thoracic Surgery (Cardiothoracic Vascular Surgery)
PROC: 4A023N7 Measurement of Cardiac Sampling and Pressure, Left Heart, Percutaneous Approach (ICD-10-PCS; principal; 2020-07-11)
PROC: B2111ZZ Fluoroscopy of Multiple Coronary Arteries using Low Osmolar Contrast (ICD-10-PCS; 2020-07-11)
PROC: B2151ZZ Fluoroscopy of Left Heart using Low Osmolar Contrast (ICD-10-PCS; 2020-07-11)
PROC: B31N1ZZ Fluoroscopy of Other Upper Arteries using Low Osmolar Contrast (ICD-10-PCS; 2020-07-11)
PROC: B41F1ZZ Fluoroscopy of Right Lower Extremity Arteries using Low Osmolar Contrast (ICD-10-PCS; 2020-07-11)
PROC: 02100Z9 Bypass Coronary Artery, One Artery from Left Internal Mammary, Open Approach (ICD-10-PCS; 2020-07-13)
PROC: 021209W Bypass Coronary Artery, Three Arteries from Aorta with Autologous Venous Tissue, Open Approach (ICD-10-PCS; 2020-07-13)
PROC: 06BQ4ZZ Excision of Left Saphenous Vein, Percutaneous Endoscopic Approach (ICD-10-PCS; 2020-07-13)
PROC: 06BP4ZZ Excision of Right Saphenous Vein, Percutaneous Endoscopic Approach (ICD-10-PCS; 2020-07-13)
PROC: 5A1221Z Performance of Cardiac Output, Continuous (ICD-10-PCS; 2020-07-13)
PROC: B24BZZ4 Ultrasonography of Heart with Aorta, Transesophageal (ICD-10-PCS; 2020-07-13)
PROC: 02HV33Z Insertion of Infusion Device into Superior Vena Cava, Percutaneous Approach (ICD-10-PCS; 2020-07-13)
PROC: B548ZZA Ultrasonography of Superior Vena Cava, Guidance (ICD-10-PCS; 2020-07-13)
PROC: 02HQ32Z Insertion of Monitoring Device into Right Pulmonary Artery, Percutaneous Approach (ICD-10-PCS; 2020-07-13)
DX: I25.110 Atherosclerotic heart disease of native coronary artery with unstable angina pectoris (principal); N17.0 Acute kidney failure with tubular necrosis; I49.3 Ventricular premature depolarization; Z20.822 Contact with and (suspected) exposure to COVID-19; E66.9 Obesity, unspecified; I10 Essential (primary) hypertension; E78.5 Hyperlipidemia, unspecified; I25.82 Chronic total occlusion of coronary artery; I48.91 Unspecified atrial fibrillation; Z68.30 Body mass index [BMI] 30.0-30.9, adult; Z87.891 Personal history of nicotine dependence; I45.9 Conduction disorder, unspecified; T44.7X5A Adverse effect of beta-adrenoreceptor antagonists, initial encounter; Y92.230 Patient room in hospital as the place of occurrence of the external cause; Z88.2 Allergy status to sulfonamides
CPT/HCPCS: 0232T; 93306; 93312; 93325; 93458; 36415; 36600; 71045; 71046; 80048; 80053; 82330; 82435; 82803; 82947; 82948; 83036; 83735; 84100; 84132; 84295; 85018; 85025; 85347; 85384; 85610; 85730; 86885; 86900; 86901; 86920; 87081; 87635; 93005; 93880; 93971; 94002; 94010; 94667; 94760; 97116; 97161; 97530; 99152; 99153; A4618; A4620; A6258; A6402; A6446; A6449; A7000; A7048; C1713; C1751; C1760; C1769; C9113; G0378; J0690; J1644; J1815; J2001; J2060; J2250; J2270; J2440; J2704; J2720; J3010; J3370; J3475; J3480; J3490; J7030; J7040; J7050; J7060; J7120; P9047; Q0163; Q9967